=== PATIENT | male | born 1995 | race Two or more races ===

== ENCOUNTER 2020-08-17 10:40 | Emergency (ER) | payer OTHER ==
[~2020-08-17] VITALS: Ht 180.3 cm; Wt 65.8 kg
--- NOTE | 2020-08-17 10:59 | NUR ---
ED Nurse Note: pt presents to ED c/o vomiting onset this AM. pt reports having wine last PM, states that this has never happened previously when he has had wine. pt denies diarrhea or hematemesis, denies urinary symptoms at this time. pt also reports epigastric pain and that his "stomach feels weird." vital signs are noted to be stable, pt is ambulatory with steady gait; no c/o SOB or dyspnea
[2020-08-17 11:00] VITALS: BP 114/68
--- NOTE | 2020-08-17 11:00 | NUR ---
ED Nurse Note: pt reports that he had COVID 3 weeks ago, tested (-) 6 days ago
--- NOTE | 2020-08-17 11:18 | Emergency Room Report ---
History of Present Illness General Chief Complaint: Vomiting Source: Patient Present Illness HPI Patient presents with 2 to 3 h of nausea and vomiting. He also had some diarrhea. He has had chills with the vomiting but no documented fever. He is also had some chest pain. He rates the pain in his chest 4/10 and somewhat aching. It does not radiate. He drank some alcohol last night and thinks this might be related. He most recently vomited yellow material. There were no coffee grounds or blood. He denies any melena. Patient tested positive for COVID-19 several weeks ago. He has isolated himself for 2 weeks. Recently he had a negative Covid test. No sore throat, palpitations, dysuria, abdominal pain, shortness of breath, joint pain, rashes, depression, anxiety, visual changes, dizziness, headache. Allergies: Coded Allergies: No Known Allergies (Unverified , 08/17/20) COVID-19 Screening Contact w/high risk pt: No Experienced COVID-19 symptoms?: No COVID-19 Testing performed ACCOUNT DEVELOPMENT SPECIALIST: No Patient History Past Medical History: see triage record, other - S/P COVID Social History: Reports: smoking, alcohol use Social History Narrative Has been self isolating Reviewed Nursing Documentation: PMH: Agreed; PSxH: Agreed Nursing Documentation-PMH Past Medical History: No Stated History Review of Systems All Other Systems: negative except mentioned in HPI Physical Exam Vital Signs Date Time Temp Pulse Resp B/P (MAP) Pulse Ox O2 Delivery O2 Flow Rate FiO2 08/17/20 10:52 97.9 94 17 114/68 (83) 98 Room Air Sp02 EP Interpretation: reviewed, normal General Appearance: well appearing, no apparent distress, GCS 15 Head: normocephalic Eyes: bilateral eye normal inspection, bilateral eye PERRL, bilateral eye EOMI ENT: moist mucus membranes Neck: supple Respiratory: chest non-tender, lungs clear, normal breath sounds Cardiovascular #1: regular rate, rhythm Cardiovascular #2: 2+ radial (R) Gastrointestinal: normal inspection, normal bowel sounds, non tender, no mass, non-distended Musculoskeletal: back normal, normal range of motion, gait/station normal Neurologic: alert, oriented x3, grossly normal Psychiatric: mood/affect normal Skin: no rash, warm/dry Medical Decision Making Diagnostic Impression: Primary Impression: Nausea & vomiting Qualified Codes: R11.2 - Nausea with vomiting, unspecified Additional Impression: Chest pain Qualified Codes: R07.89 - Other chest pain ER Course Patient presents with nausea vomiting diarrhea with chest pain. Differential includes gastritis, gastroenteritis, pericarditis amongst others. Evaluation with EKG, chest x-ray and labs. Patient treated with IV hydration, Zofran and Pepcid. Patient placed on a telemetry monitor. EKG without injury. Chest x-ray normal. Normal white count. Slight left shift. CMP remarkable for elevated BUN. Troponin negative. Patient with continued nausea. Phenergan administered orally. Patient tolerating oral intake without difficulty. No apparent emergency at this time. Discussed findings with patient. Discussed treatment plan with patient. Patient stable for outpatient observation and treatment. Laboratory Tests Test 08/17/20 11:32 White Blood Count 10.4 K/UL (4.8-10.8) Red Blood Count 5.07 M/UL (4.70-6.10) Hemoglobin 15.2 G/DL (14.2-18.0) Hematocrit 46.5 % (42.0-52.0) Mean Corpuscular Volume 92 FL (80-99) Mean Corpuscular Hemoglobin 30.0 PG (27.0-31.0) Mean Corpuscular Hemoglobin Concent 32.6 G/DL (32.0-36.0) Red Cell Distribution Width 11.4 % (11.6-14.8) L Platelet Count 348 K/UL (150-450) Mean Platelet Volume 6.4 FL (6.5-10.1) L Neutrophils (%) (Auto) % (45.0-75.0) Lymphocytes (%) (Auto) % (20.0-45.0) Monocytes (%) (Auto) % (1.0-10.0) Eosinophils (%) (Auto) % (0.0-3.0) Basophils (%) (Auto) % (0.0-2.0) Differential Total Cells Counted 100 Neutrophils % (Manual) 89 % (45-75) H Lymphocytes % (Manual) 8 % (20-45) L Monocytes % (Manual) 3 % (1-10) Eosinophils % (Manual) 0 % (0-3) Basophils % (Manual) 0 % (0-2) Band Neutrophils 0 % (0-8) Platelet Estimate Adequate Platelet Morphology Normal Red Blood Cell Morphology Normal Prothrombin Time 11.3 SEC (9.30-11.50) Prothrombin Time INR 1.0 (0.9-1.1) Activated Partial Thromboplast Time 26 SEC (23-33) Urine Color Yellow Urine Appearance Clear Urine pH 5 (4.5-8.0) Urine Specific [place] 1.030 (1.005-1.035) Urine Protein 1+ (NEGATIVE) H Urine Glucose (UA) Negative (NEGATIVE) Urine Ketones 4+ (NEGATIVE) H Urine Blood 2+ (NEGATIVE) H Urine Nitrite Negative (NEGATIVE) Urine Bilirubin Negative (NEGATIVE) Urine Urobilinogen Normal MG/DL (0.0-1.0) Urine Leukocyte Esterase Negative (NEGATIVE) Urine RBC 0-2 /HPF (0 - 0) H Urine WBC 0-2 /HPF (0 - 0) Urine Squamous Epithelial Cells Occasional /LPF Urine Bacteria Few /HPF (NONE) Urine Mucus Few /LPF (NONE/OCC) H Sodium Level 139 MMOL/L (136-145) Potassium Level 4.0 MMOL/L (3.5-5.1) Chloride Level 102 MMOL/L (98-107) Carbon Dioxide Level 23 MMOL/L (21-32) Anion Gap 14 mmol/L (5-15) Blood Urea Nitrogen 21 mg/dL (7-18) H Creatinine 0.8 MG/DL (0.55-1.30) Estimated Glomerular Filtration Rate > 60 mL/min (>60) Glucose Level 67 MG/DL (74-106) L Calcium Level 9.9 MG/DL (8.5-10.1) Total Bilirubin 0.8 MG/DL (0.2-1.0) Aspartate Amino Transferase (AST) 36 U/L (15-37) Alanine Aminotransferase (ALT) 36 U/L (12-78) Alkaline Phosphatase 56 U/L (46-116) Total Creatine Kinase 194 U/L (26-308) Troponin I 0.000 ng/mL (0.000-0.056) Total Protein 8.4 G/DL (6.4-8.2) H Albumin 4.9 G/DL (3.4-5.0) Globulin 3.5 g/dL Albumin/Globulin Ratio 1.4 (1.0-2.7) Lipase 75 U/L (73-393) EKG Diagnostic Results Rate: normal Rhythm: NSR ST Segments: no acute changes - slight peaked T waves Rhythm Strip Diag. Results EP Interpretation: yes Rhythm: NSR, no PVC's, no ectopy Chest X-Ray Diagnostic Results Chest X-Ray Diagnostic Results : Chest X-Ray Ordered: Yes # of Views/Limited/Complete: 1 View Indication: Chest Pain EP Interpretation: Yes Interpretation: no consolidation, no effusion, no pneumothorax Impression: No acute disease Electronically Signed by: Electronically signed by Denzel Mehta MD Last Vital Signs Date Time Temp Pulse Resp B/P (MAP) Pulse Ox O2 Delivery O2 Flow Rate FiO2 08/17/20 13:10 97.9 17 114/68 98 Room Air 08/17/20 11:00 94 Status: improved Disposition: HOME, SELF-CARE Condition: Improved Scripts Ondansetron Odt* (ZOFRAN ODT*) 4 Mg Tab.rapdis 4 MG BC EVERY 8 HOURS, #6 TAB 0 Refills Prov: Denzel Mehta MD 08/17/20 Famotidine* (Pepcid 20mg tablet*) 20 Mg Tablet 20 MG ORAL DAILY for Gerd, #20 TAB 0 Refills Prov: Denzel Mehta MD 08/17/20 Referrals: [facility],REFERRING (PCP) Denzel Mehta MD Aug 17, 2020 11:17
--- NOTE | 2020-08-17 11:49 | NUR ---
ED Nurse Note: pt able to tolerate 200 mL of water without c/o nausea or vomiting
[2020-08-17 11:51] LABS: HEMATOCRIT 46.5 % (42.0-52.0); HEMOGLOBIN 15.2 G/DL (14.2-18.0); MEAN CORPUSCULAR VOLUME 92 FL (80-99); PLATELET COUNT 348 K/UL (150-450); RED BLOOD COUNT 5.07 M/UL (4.70-6.10); RED CELL DISTRIBUTION WIDTH 11.4 % (11.6-14.8); WHITE BLOOD COUNT 10.4 K/UL (4.8-10.8)
[2020-08-17 11:53] LABS: APPEARANCE,URINE CLEAR; BILIRUBIN, URINE NEGATIVE (NEGATIVE); COLOR,URINE YELLOW; GLUCOSE, URINE (UA) NEGATIVE (NEGATIVE); KETONES,URINE 4+ (NEGATIVE); LEUKOCYTE ESTERASE ,URINE NEGATIVE (NEGATIVE); NITRITE,URINE NEGATIVE (NEGATIVE); PH,URINE 5 (4.5-8.0); PROTEIN,URINE 1+ (NEGATIVE); UROBILINOGEN,URINE NORMAL MG/DL (0.0-1.0)
[2020-08-17 12:08] LABS: ANION GAP 14 mmol/L (5-15); BLOOD UREA NITROGEN 21 mg/dL (7-18); CALCIUM 9.9 MG/DL (8.5-10.1); CARBON DIOXIDE 23 MMOL/L (21-32); CHLORIDE 102 MMOL/L (98-107); CREATININE 0.8 MG/DL (0.55-1.30); SODIUM 139 MMOL/L (136-145)
[2020-08-17 12:09] LABS: ALANINE AMINOTRANSFERASE 36 U/L (12-78); ALBUMIN 4.9 G/DL (3.4-5.0); ALBUMIN/GLOBULIN RATIO 1.4 (1.0-2.7); ALKALINE PHOSPHATASE 56 U/L (46-116); ASPARTATE AMINO TRANSFERASE 36 U/L (15-37); BILIRUBIN,TOTAL 0.8 MG/DL (0.2-1.0); CREATINE KINASE 194 U/L (26-308)
--- NOTE | 2020-08-17 12:19 | Diagnostic Imaging Report ---
EXAM: XR Chest, 1 View CLINICAL HISTORY: CP TECHNIQUE: Frontal view of the chest. COMPARISON: None FINDINGS: Hardware: None. Lungs/pleura: Normal. No focal consolidation. No pleural effusion or pneumothorax. Heart/mediastinum: Normal. No cardiomegaly. Soft tissues: Unremarkable. Bones: No acute fracture. Upper abdomen: Normal. IMPRESSION: No acute disease identified.
[2020-08-17] MEDS ORDERED: Promethazine 25mg tab ORAL STA (12:46)
[2020-08-17] MEDS ORDERED: ONDANSETRON ODT4 MG BC (12:53)
[2020-08-17] MEDS ORDERED: FAMOTIDINE20 MG ORAL (12:53)
[2020-08-17 13:10] VITALS: BP 114/68
--- NOTE | 2020-08-17 13:10 | NUR ---
ER DISCHARGE NOTE: Patient is cleared to be discharged per ERMD, pt is aox4, on room air, with stable vital signs. pt was given dc and prescription instructions, pt was able to verbalize understanding, pt id band and iv site removed without complications. pt is able to ambulate with steady gait. pt took all belongings.
== END 2020-08-17 13:11 | disposition home or self-care (01) ==
LOC: EMR 11:12
DX: R11.2 Nausea with vomiting, unspecified (principal); R07.89 Other chest pain; R19.7 Diarrhea, unspecified; Z86.16 Personal history of COVID-19
CPT/HCPCS: 36415; 71045; 80053; 81003; 82550; 83690; 84484; 85007; 85025; 85610; 85730; 96361; 96374; 96375; J2405; J7030; S0028; Z7502; 99284